=== PATIENT | female | born 1995 | race Caucasian/White ===

== ENCOUNTER 2019-01-17 17:20 | Observation (INO) | payer OTHER, SELFPAY ==
[2019-01-17] VITALS (7 sets, daily range): BP systolic 117–124; BP diastolic 68–101; PULSE 107–120; RESP 15–22; TEMP 36.7–37.9; O2SAT 95–99; BMI 24.7; BMI 24.3
--- NOTE | 2019-01-17 17:28 | ED.SEIZURE ---
HPI - Seizure General Chief Complaint: Toxicology Problem Stated Complaint: Seizure Time Seen by Provider: 01/17/19 17:26 Source: patient and EMS Mode of arrival: EMS Limitations: no limitations History of Present Illness HPI Narrative: 23-year-old female former smoker with heavy alcohol history presents by EMS with a chief complaint of a generalized tonic-clonic seizure that happened just prior to arrival while the patient was out hiking. She had been feeling relatively fine and well leading up to this and has no significant seizure history. She denies any trauma leading up to this and no fever, chills nor headache or neck pain. She does have an extensive alcohol history and stopped drinking about 36 hours ago. She has had seizures as a consequence of alcohol withdrawal 1 time before. She currently complains of a headache, agitation some nausea, generalized abdominal discomfort, and has a mild resting tremor. MD complaint: seizure Onset (ago): minute(s) Description of Episode: loss of consciousness and tonic-clonic movement -: second(s) Witnessed: yes - by bystander Trauma: No Seizure History: none Place: street/outdoors Possible Precipitating Event: alcohol withdrawal Related Data Allergies Allergy/AdvReac Type Severity Reaction Status Date / Time No Known Drug Allergies Allergy Verified 01/17/19 17:30 Review of Systems Constitutional Reports chills, Reports fatigue, Denies fever(s), Reports headache(s), Denies lethargy, Reports poor appetite and Reports weakness Eyes Denies change in vision, Denies eye discharge, Denies irritation and Denies loss of vision ENT Ears, Nose, Mouth, and Throat: Denies change in voice, Reports headache(s), Denies neck pain and Denies sore throat Cardiovascular Denies chest pain, Denies irregular heart rhythm, Denies lightheadedness, Denies palpitations, Denies dyspnea, Denies dyspnea on exertion and Denies orthopnea Respiratory Denies cough, Denies dyspnea, Denies dyspnea on exertion and Denies wheezing Gastrointestinal Gastrointestinal: Reports abdominal pain, Denies change in bowel habits, Denies diarrhea, Reports nausea and Reports vomiting Genitourinary Denies hematuria, Denies flank pain, Denies urinary incontinence and Denies urinary urgency Musculoskeletal Denies neck pain Integumentary/Breasts Denies pruritus, Denies erythema, Denies rash and Denies wounds Neurologic Denies confusion, Reports headache(s), Denies loss of vision and Reports weakness Psychiatric Denies anxiety, Denies confusion, Denies depression, Denies homicidal ideation and Reports suicidal ideation Endocrine Reports fatigue and Denies palpitations Hematologic/Lymphatic Denies easy bruising Allergic/Immunologic Denies wheezing [facility] Medical History (Updated 01/17/19 @ 18:47 by Aki Rudd DO) Alcohol abuse (Acute) Social History Smoking Status: Unknown if ever smoked Social History Smoking Status: Unknown if ever smoked Exam Narrative Exam Narrative: GENERAL: 23-year-old female appears stated age, in moderate distress, obviously agitated with mild resting tremor HEAD: Atraumatic. Normocephalic. No temporal or scalp tenderness. EYES: Pupils equal round and reactive. Extraocular motions intact. No scleral icterus. No injection or drainage. ENT: Nose without bleeding, purulent drainage or septal hematoma. Throat without erythema, tonsillar hypertrophy or exudate. Uvula midline. Airway patent. NECK: Trachea midline. No JVD or lymphadenopathy. Supple, nontender, no meningeal signs. CARDIOVASCULAR: Regular rate and rhythm without murmurs, gallops, or rubs. RESPIRATORY: Clear to auscultation. Breath sounds equal bilaterally. No wheezes, rales, or rhonchi. GASTROINTESTINAL: Abdomen soft, non-tender, nondistended. No hepato-splenomegaly, or palpable masses. No guarding. EXTREMITIES: No clubbing, cyanosis, or edema. No joint tenderness, effusion, or edema noted. BACK: Nontender without deformity or crepitance. No flank tenderness. NEURO: AOx3. SKIN: No rash or erythema. Initial Vital Signs Initial Vital Signs: Vital Signs Temperature 99.3 F 01/17/19 17:30 Pulse Rate 119 H 01/17/19 17:30 Respiratory Rate 15 01/17/19 17:30 Blood Pressure 121/101 H 01/17/19 17:30 Pulse Oximetry 96 01/17/19 17:30 Scores [id number] Citation: ANGELLA-Romain for Alcohol Withdrawal from [employer] on 01/17/2019 All calculations should be rechecked by clinician prior to use RESULT SUMMARY: 17 points Patients with scores ?9 may require medication for withdrawal. INPUTS: Nausea/vomiting ?> 3 = (More severe symptoms) Tremor ?> 4 = Moderate, with patient's arms extended Paroxysmal sweats ?> 2 = (More severe symptoms) Anxiety ?> 3 = (More severe symptoms) Agitation ?> 2 = (More severe symptoms) Tactile disturbances ?> 0 = None Auditory disturbances ?> 0 = Not present Visual disturbances ?> 0 = Not present Headache/fullness in head ?> 3 = Moderate Orientation/clouding of sensorium ?> 0 = Oriented, can do serial additions Course Decision to Admit time: 18:05 Orders Ordered: ED Orders 01/17/19 17:15 Basic Metabolic Panel Stat Complete Blood Count AUTO DIFF Stat Ethanol (ETOH) Stat Magnesium Stat Prolactin Stat 01/17/19 17:26 Urine Drug Screen, Rapid Stat Magnesium Sulfate 2 gm/ Folic Acid 1 mg/ Thiamine HCl 100 mg / Multivitamins 10 ml/ Sodium Chloride 1,015.2 mls @ 125 mls/hr IV NOW ONE Stop: 01/18/19 02:00 Discontinued Medications Sodium Chloride (Normal Saline 0.9%) 1,000 mls @ 1,000 mls/hr IV BOLUS ONE Stop: 01/17/19 18:25 Last Admin: 01/17/19 17:39 Dose: 1,000 mls/hr Thiamine HCl 100 mg/ Dextrose 51 mls @ 204 mls/hr IV NOW ONE Stop: 01/17/19 17:28 Last Admin: 01/17/19 17:56 Dose: 204 mls/hr Lorazepam (Ativan) 2 mg IV NOW ONE Stop: 01/17/19 17:27 Last Admin: 01/17/19 17:40 Dose: 2 mg Reevaluation(s) Reevaluation #1: Patient feeling much better after Ativan, shakes have improved, less tachycardia Consultations Consultation #1: call to Dr. Rollins, she is happy to accept patient on her service Vital Signs - 8 hr 01/17/19 17:30 01/17/19 18:21 01/17/19 18:30 Temperature 99.3 F Pulse Rate 119 H 120 H 111 H Respiratory Rate 15 22 15 Blood Pressure 121/101 H Blood Pressure [Right Arm] 118/79 121/75 Pulse Oximetry 96 99 99 MDM - Seizure Lab Data Result diagrams: 01/17/19 17:15 01/17/19 17:15 Lab Results 01/17/19 01/17/19 01/17/19 Range/Units 17:15 17:15 17:15 WBC 14.1 H (4.5-11.0) X10^3/uL RBC 4.69 (4.0-5.2) X10^6/uL Hgb 14.2 (12.0-16.0) g/dL Hct 42.5 (36-46) % MCV 90.8 (80-100) fL MCH 30.4 (26-34) PG MCHC 33.5 (30-36) % RDW 13.8 (11.6-14.8) % Plt Count 450 H (150-400) X10^3/uL Neut % (Auto) 72.6 (50-75) % Lymph % (Auto) 20.3 L (25-40) % [place] % (Auto) 6.3 (3-14) % Eos % (Auto) 0.1 L (2-4) % Baso % (Auto) 0.7 (0-2) % Neut # (Auto) 61583 H (2097-4543) /uL Lymph # (Auto) 2900 (8976-2995) /uL [place] # (Auto) 900 (0-900) /uL Eos # (Auto) 0 (0-450) /uL Baso # (Auto) 100 (0-100) /uL Sodium 138 (137-145) mmol/L Potassium 3.6 (3.4-5.1) mmol/L Chloride 96 L (98-107) mmol/L Carbon Dioxide 17 L (22-32) mmol/L BUN 12 (7-17) mg/dL Creatinine 1.10 H (0.52-1.04) mg/dL Estimated GFR > 60.0 (>60) mL/min BUN/Creatinine Ratio 10.9 (6-22) Glucose 111 H (70-100) mg/dL Calcium 9.9 (8.4-10.2) mg/dL Magnesium 2.1 (1.6-2.3) mg/dL Prolactin 95.8 H (3.0-18.6) ng/mL Ethyl Alcohol < 10 mg/dL Discharge Plan Departure Patient Disposition: Admitted As Inpatient Clinical Impression: Alcohol withdrawal seizure Qualifiers: Complication of substance-induced condition: with unspecified complication Qualified Code(s): F10.239 - Alcohol dependence with withdrawal, unspecified Admit Date/Time: 01/17/19 18:42 Admit Provider: Zully Rollins
--- NOTE | 2019-01-17 17:31 | ED_ITS ---
HPI - Seizure General Chief Complaint: Toxicology Problem Stated Complaint: Seizure Time Seen by Provider: 01/17/19 17:26 Source: patient and EMS Mode of arrival: EMS Limitations: no limitations History of Present Illness HPI Narrative: 23-year-old female former smoker with heavy alcohol history presents by EMS with a chief complaint of a generalized tonic-clonic seizure that happened just prior to arrival while the patient was out hiking. She had been feeling relatively fine and well leading up to this and has no significant seizure history. She denies any trauma leading up to this and no fever, chills nor headache or neck pain. She does have an extensive alcohol history and stopped drinking about 36 hours ago. She has had seizures as a consequence of alcohol withdrawal 1 time before. She currently complains of a headache, agitation some nausea, generalized abdominal discomfort, and has a mild resting tremor. MD complaint: seizure Onset (ago): minute(s) Description of Episode: loss of consciousness and tonic-clonic movement -: second(s) Witnessed: yes - by bystander Trauma: No Seizure History: none Place: street/outdoors Possible Precipitating Event: alcohol withdrawal Related Data Allergies Allergy/AdvReac Type Severity Reaction Status Date / Time No Known Drug Allergies Allergy Verified 01/17/19 17:30 Review of Systems Constitutional Reports chills, Reports fatigue, Denies fever(s), Reports headache(s), Denies lethargy, Reports poor appetite and Reports weakness Eyes Denies change in vision, Denies eye discharge, Denies irritation and Denies loss of vision ENT Ears, Nose, Mouth, and Throat: Denies change in voice, Reports headache(s), Denies neck pain and Denies sore throat Cardiovascular Denies chest pain, Denies irregular heart rhythm, Denies lightheadedness, Denies palpitations, Denies dyspnea, Denies dyspnea on exertion and Denies orthopnea Respiratory Denies cough, Denies dyspnea, Denies dyspnea on exertion and Denies wheezing Gastrointestinal Gastrointestinal: Reports abdominal pain, Denies change in bowel habits, Denies diarrhea, Reports nausea and Reports vomiting Genitourinary Denies hematuria, Denies flank pain, Denies urinary incontinence and Denies urinary urgency Musculoskeletal Denies neck pain Integumentary/Breasts Denies pruritus, Denies erythema, Denies rash and Denies wounds Neurologic Denies confusion, Reports headache(s), Denies loss of vision and Reports weakness Psychiatric Denies anxiety, Denies confusion, Denies depression, Denies homicidal ideation a nd Reports suicidal ideation Endocrine Reports fatigue and Denies palpitations Hematologic/Lymphatic Denies easy bruising Allergic/Immunologic Denies wheezing [facility] Medical History (Updated 01/17/19 @ 18:47 by Aki Rudd DO) Alcohol abuse (Acute) Social History Smoking Status: Unknown if ever smoked Social History Smoking Status: Unknown if ever smoked Exam Narrative Exam Narrative: GENERAL: 23-year-old female appears stated age, in moderate distress, obviously agitated with mild resting tremor HEAD: Atraumatic. Normocephalic. No temporal or scalp tenderness. EYES: Pupils equal round and reactive. Extraocular motions intact. No scleral icterus. No injection or drainage. ENT: Nose without bleeding, purulent drainage or septal hematoma. Throat without erythema, tonsillar hypertrophy or exudate. Uvula midline. Airway patent. NECK: Trachea midline. No JVD or lymphadenopathy. Supple, nontender, no meningeal signs. CARDIOVASCULAR: Regular rate and rhythm without murmurs, gallops, or rubs. RESPIRATORY: Clear to auscultation. Breath sounds equal bilaterally. No wheezes, rales, or rhonchi. GASTROINTESTINAL: Abdomen soft, non-tender, nondistended. No hepato- splenomegaly, or palpable masses. No guarding. EXTREMITIES: No clubbing, cyanosis, or edema. No joint tenderness, effusion, or edema noted. BACK: Nontender without deformity or crepitance. No flank tenderness. NEURO: AOx3. SKIN: No rash or erythema. Initial Vital Signs Initial Vital Signs: Vital Signs Temperature 99.3 F 01/17/19 17:30 Pulse Rate 119 H 01/17/19 17:30 Respiratory Rate 15 01/17/19 17:30 Blood Pressure 121/101 H 01/17/19 17:30 Pulse Oximetry 96 01/17/19 17:30 Scores ABCD2 Citation: Gibran for Alcohol Withdrawal from [employer] on 01/17/2019 All calculations should be rechecked by clinician prior to use RESULT SUMMARY: 17 points Patients with scores ?9 may require medication for withdrawal. INPUTS: Nausea/vomiting ?> 3 = (More severe symptoms) Tremor ?> 4 = Moderate, with patient's arms extended Paroxysmal sweats ?> 2 = (More severe symptoms) Anxiety ?> 3 = (More severe symptoms) Agitation ?> 2 = (More severe symptoms) Tactile disturbances ?> 0 = None Auditory disturbances ?> 0 = Not present Visual disturbances ?> 0 = Not present Headache/fullness in head ?> 3 = Moderate Orientation/clouding of sensorium ?> 0 = Oriented, can do serial additions Course Decision to Admit time: 18:05 Orders Ordered: ED Orders 01/17/19 17:15 Basic Metabolic Panel Stat Complete Blood Count AUTO DIFF Stat Ethanol (ETOH) Stat Magnesium Stat Prolactin Stat 01/17/19 17:26 Urine Drug Screen, Rapid Stat Magnesium Sulfate 2 gm/ Folic Acid 1 mg/ Thiamine HCl 100 mg / Multivitamins 10 ml/ Sodium Chloride 1,015.2 mls @ 125 mls/hr IV NOW ONE Stop: 01/18/19 02:00 Discontinued Medications Sodium Chloride (Normal Saline 0.9%) 1,000 mls @ 1,000 mls/hr IV BOLUS ONE Stop: 01/17/19 18:25 Last Admin: 01/17/19 17:39 Dose: 1,000 mls/hr Thiamine HCl 100 mg/ Dextrose 51 mls @ 204 mls/hr IV NOW ONE Stop: 01/17/19 17:28 Last Admin: 01/17/19 17:56 Dose: 204 mls/hr Lorazepam (Ativan) 2 mg IV NOW ONE Stop: 01/17/19 17:27 Last Admin: 01/17/19 17:40 Dose: 2 mg Reevaluation(s) Reevaluation #1: Patient feeling much better after Ativan, shakes have improved, less tachycardia Consultations Consultation #1: call to Dr. Rollins, she is happy to accept patient on her service Vital Signs - 8 hr 01/17/19 17:30 01/17/19 18:21 01/17/19 18:30 Temperature 99.3 F Pulse Rate 119 H 120 H 111 H Respiratory Rate 15 22 15 Blood Pressure 121/101 H Blood Pressure [Right Arm] 118/79 121/75 Pulse Oximetry 96 99 99 MDM - Seizure Lab Data Result diagrams: 01/17/19 17:15 01/17/19 17:15 Lab Results 01/17/19 01/17/19 01/17/19 Range/Units 17:15 17:15 17:15 WBC 14.1 H (4.5-11.0) X10^3/uL RBC 4.69 (4.0-5.2) X10^6/uL Hgb 14.2 (12.0-16.0) g/dL Hct 42.5 (36-46) % MCV 90.8 (80-100) fL MCH 30.4 (26-34) PG MCHC 33.5 (30-36) % RDW 13.8 (11.6-14.8) % Plt Count 450 H (150-400) X10^3/uL Neut % (Auto) 72.6 (50-75) % Lymph % (Auto) 20.3 L (25-40) % [place] % (Auto) 6.3 (3-14) % Eos % (Auto) 0.1 L (2-4) % Baso % (Auto) 0.7 (0-2) % Neut # (Auto) 64618 H (0475-9515) /uL Lymph # (Auto) 2900 (5619-5822) /uL [place] # (Auto) 900 (0-900) /uL Eos # (Auto) 0 (0-450) /uL Baso # (Auto) 100 (0-100) /uL Sodium 138 (137-145) mmol/L Potassium 3.6 (3.4-5.1) mmol/L Chloride 96 L (98-107) mmol/L Carbon Dioxide 17 L (22-32) mmol/L BUN 12 (7-17) mg/dL Creatinine 1.10 H (0.52-1.04) mg/dL Estimated GFR > 60.0 (>60) mL/min BUN/Creatinine Ratio 10.9 (6-22) Glucose 111 H (70-100) mg/dL Calcium 9.9 (8.4-10.2) mg/dL Magnesium 2.1 (1.6-2.3) mg/dL Prolactin 95.8 H (3.0-18.6) ng/mL Ethyl Alcohol < 10 mg/dL Discharge Plan Departure Patient Disposition: Admitted As Inpatient Clinical Impression: Alcohol withdrawal seizure Qualifiers: Complication of substance-induced condition: with unspecified complication Qualified Code(s): F10.239 - Alcohol dependence with withdrawal, unspecified Admit Date/Time: 01/17/19 18:42 Admit Provider: Zully Rollins
[2019-01-17 17:33] LABS: Add Manual Diff / Slide Review NO; Basophils Absolute Auto 100 /uL (0-100); Basophils Percent Auto 0.7 % (0-2); Eosinophils Absolute Auto 0 /uL (0-450); Eosinophils Percent Auto 0.1 % (2-4); Hematocrit 42.5 % (36-46); Hemoglobin 14.2 g/dL (12.0-16.0); Lymphocytes Absolute Auto 2900 /uL (1100-4500); Lymphocytes Percent Auto 20.3 % (25-40); Mean Corpuscular HGB Conc 33.5 % (30-36); Mean Corpuscular Hemoglobin 30.4 PG (26-34); Mean Corpuscular Volume 90.8 fL (80-100); Monocytes Absolute Auto 900 /uL (0-900); Monocytes Percent Auto 6.3 % (3-14); Neutrophils Absolute Auto 10200 /uL (1500-7000); Neutrophils Percent Auto 72.6 % (50-75); Platelet Count 450 X10^3/uL (150-400); Red Blood Cell Count 4.69 X10^6/uL (4.0-5.2); Red Cell Distribution Width 13.8 % (11.6-14.8); White Blood Cell Count 14.1 X10^3/uL (4.5-11.0)
[2019-01-17] MEDS: SODIUM CHLORIDE 0.9% 1,000 ML 1000 ML IV (17:39)
[2019-01-17] MEDS: LORazepam 2 MG/ML INJ IV (17:40)
[2019-01-17 17:44] LABS: BUN Creatinine Ratio 10.9 (6-22); Blood Urea Nitrogen 12 mg/dL (7-17); Calcium 9.9 mg/dL (8.4-10.2); Carbon Dioxide 17 mmol/L (22-32); Chloride 96 mmol/L (98-107); Estimated Glomerular Filt Rate > 60.0 mL/min (>60); Glucose 111 mg/dL (70-100); HEMOLYSIS < 15 (0-50); Magnesium 2.1 mg/dL (1.6-2.3); Potassium 3.6 mmol/L (3.4-5.1); Sodium 138 mmol/L (137-145)
[2019-01-17] MEDS: THIAMINE 100 MG in DEXTROSE 5 % IN WATER 50 ML 204 ML IV (17:56)
[2019-01-17 18:01] LABS: Prolactin 95.8 ng/mL (3.0-18.6)
[2019-01-17 18:02] LABS: Ethanol (ETOH) < 10 mg/dL
[2019-01-17] MEDS: MAGNESIUM SULFATE 2 GM, FOLIC ACID 1 MG, THIAMINE 100 MG, MULTIVITAMIN 10 ML in SODIUM ... IV (18:51)
--- NOTE | 2019-01-17 21:33 | PM.HP.1 ---
History of Present Illness Date Patient Seen: 01/17/19 Time Patient Seen: 19:00 Chief complaint: Presumed alcoholic withdrawal seizure Narrative: Eloina Calderon is a 23-year-old female with longstanding history of heavy alcohol use presents today after having been witnessed to have had a seizure. She states that she had quit drinking though has not been ?sober for a while. She stated that she started shaking, her leg froze up and then she had numbing in her right hand and in her left foot followed by being able to complete sentences. She states that she laid down and her back rolled up and she fell on the ground. She states that her last drink was Wednesday night which would have been 1 night ago. Patient History Medical History (Updated 01/18/19 @ 00:27 by JOSE Pratt) Alcohol abuse (Acute) Major depression, recurrent, chronic (Acute) Family History (Updated 01/18/19 @ 00:29 by JOSE Pratt) Mother Abuse, drug or alcohol Father CVA (cerebral vascular accident) Abuse, drug or alcohol Social History household members: none Smoking Status: Current some day smoker Family & Social History Social History: household members none Prior Living Arrangements Apartment/Condo Safety & Behavioral: Feels Safe in Current Yes Environment Been Physically Hurt or No Threatened By a Person Suicidal Ideation Description None Suicide Plan Description No Plan Tobacco & Substance use: Tobacco type cigarettes Smoking Status Current some day smoker alcohol intake frequency 3 or more drinks per day Substance Use Type does not use Meds Home Medications Medication Instructions Recorded Confirmed Type melatonin PRN 01/17/19 History sertraline 150 mg PO DAILY 01/17/19 01/17/19 History Allergies Allergy/AdvReac Type Severity Reaction Status Date / Time diphenhydramine Allergy Verified 01/17/19 21:35 [From Benadryl] Review of Systems Review of Systems She denies fever states that she has been dizzy she denies nausea she states that she is tired and feels confused and that she is currently having problems standing balance when walking. All other systems were reviewed and are negative. Exam Vital Signs (past 8 hours): - 01/17/19 17:30 01/17/19 18:21 01/17/19 18:30 Temperature 99.3 F Pulse Rate 119 H 120 H 111 H Respiratory Rate 15 22 15 Blood Pressure 121/101 H Blood Pressure [Right Arm] 118/79 121/75 Pulse Oximetry 96 99 99 01/17/19 19:30 01/17/19 20:00 Temperature 100.2 F H Pulse Rate 109 H 107 H Respiratory Rate 17 22 Blood Pressure 124/68 Blood Pressure [Right Arm] 124/88 Pulse Oximetry 97 96 Oxygen Delivery Method Room Air Narrative Exam Narrative: Gen: Alert, oriented 23 y.o. well-developed female, mildly anxious HEENT: normocephalic, atraumatic, conjunctiva clear, sclera non-icteric, oral mucosa pink and moist Neck: supple, full ROM Resp: Lungs CTA, non-labored breathing CV: RRR, no murmur or rubs Abd: soft, non-tender, normoactive BTs Skin: no lesions, rashes or jaundice, extensive tatoos on both arms, dry and intact Neuro: Alert and oriented X 4 w/no focal deficits Extremities: moves all 4 extremities, is ambulatory Psyche: Anxious. Objective Labs Result Diagrams: 01/17/19 17:15 01/17/19 17:15 Labs: Laboratory Results - last 24 hr 01/17/19 01/17/19 01/17/19 17:15 17:15 17:15 WBC 14.1 H RBC 4.69 Hgb 14.2 Hct 42.5 MCV 90.8 MCH 30.4 MCHC 33.5 RDW 13.8 Plt Count 450 H Neut % (Auto) 72.6 Lymph % (Auto) 20.3 L [place] % (Auto) 6.3 Eos % (Auto) 0.1 L Baso % (Auto) 0.7 Neut # (Auto) 90929 H Lymph # (Auto) 2900 [place] # (Auto) 900 Eos # (Auto) 0 Baso # (Auto) 100 Sodium 138 Potassium 3.6 Chloride 96 L Carbon Dioxide 17 L BUN 12 Creatinine 1.10 H Estimated GFR > 60.0 BUN/Creatinine Ratio 10.9 Glucose 111 H Calcium 9.9 Magnesium 2.1 Prolactin 95.8 H Ethyl Alcohol < 10 Assessment & Plan Assessment & Plan narrative: Eloina Calderon is admitted to the ICU for alcoholic withdrawals and seizures. 1. Seizures likely secondary to alcohol withdrawal She will be under a CIWA protocol Ativan 1 mg p.o. q.4 hours as needed for agitation or withdrawal, IV Zofran for nausea and/or vomiting Seizure precautions She will complete the IV banana bag tonight an than be on 0.45 normal saline at 100 mL/hour x1 L Oral folic acid, thiamine and multivitamin supplementation will be started tomorrow morning Social work consult for possible inpatient versus outpatient rehab 2. Major depression She will be continued on her home dose of sertraline 150 mg p.o. daily Patient is admitted in the inpatient intensive care unit as her stay is anticipated to exceed 2 midnights. FEN: IV half normal saline at 100 mL/hour, regular diet, chemistries in the morning VTE Prophylaxis: Bilateral Conner hose, the patient is relatively ambulatory Disposition: Unknown at this time Code status: Full code Admission time: 65 minutes Meds reconciled: Yes based on current med list Scores GCS [place] coma scale eye opening: Spontaneous [place] coma scale verbal response: Orientated [place] coma scale motor response: Obey commands [place] coma scale total score: 15 Quality VTE Deep Vein Thrombosis/Pulmonary Embolism Present on Admission: No
[2019-01-17 21:56] LABS: WBC Urine None Seen (0-5/HPF)
[2019-01-17 22:02] LABS: Pregnancy Test Urine Negative (Negative)
[2019-01-17 22:07] LABS: Urine Amphetamines Negative (Negative); Urine Barbiturates Negative (Negative); Urine Benzodiazepines Negative (Negative); Urine Cocaine Negative (Negative); Urine MDMA Negative (Negative); Urine Methadone Negative (Negative); Urine Methamphetamines Negative (Negative); Urine Morphine/Opi cutoff 2000 Negative (Negative); Urine Oxycodone Negative (Negative); Urine Phencyclidine Negative (Negative); Urine Tetrahydrocannabinol Negative (Negative); Urine Tricyclic Antidepressant Negative (Negative)
[2019-01-17 22:08] LABS: Appearance Urine UA CLEAR; Bilirubin Urine UA NEGATIVE (NEGATIVE); Color Urine UA YELLOW; Glucose Urine UA NEGATIVE (Negative); Ketones Urine UA NEGATIVE (NEGATIVE); Leukocyte Esterase Urine UA NEGATIVE (NEGATIVE); Nitrite Urine UA NEGATIVE (Negative); Occult Blood Urine UA TRACE-LYSED (Negative); Protein Urine UA NEGATIVE (Negative); Urobilinogen Urine UA 0.2 E.U./dL (0.2)
[2019-01-17 22:20] LABS: Bacteria Urine Few (2-10); RBC Urine 0-1/HPF (0-5/HPF); Squamous Epithelial Cell Urine None Seen (0-5/HPF)
[2019-01-17 22:21] LABS: Culture Indicated Urine Cult Not Indicated
--- NOTE | 2019-01-17 23:45 | PC.NURSE ---
Admission Note: Pt admitted to ICU from ER for ETOH withdrawal. Pt with CIWAA 0 after ativan given in ER. Pt is pleasant and conversant, cooperative with care. Arrives on RA, SPO2 mid 90s. Pt with BP WNL, tachycardic to 110s. Pt is unsteady on her feet, discussed that she is a fall risk and will need to have assistance for ambulation. Pt indicates understanding. Bed alarm on and functioning. Call light in place.
[2019-01-18] VITALS: BP 116/69; PULSE 93; RESP 21; TEMP 37; O2SAT 97
--- NOTE | 2019-01-18 00:20 | P.HP_ITS ---
History of Present Illness Date Patient Seen: 01/17/19 Time Patient Seen: 19:00 Chief complaint: Presumed alcoholic withdrawal seizure Narrative: Eloina Calderon is a 23-year-old female with longstanding history of heavy alcohol use presents today after having been witnessed to have had a seizure. She states that she had quit drinking though has not been ?sober for a while. She stated that she started shaking, her leg froze up and then she had numbing in her right hand and in her left foot followed by being able to complete sentences. She states that she laid down and her back rolled up and she fell on the ground. She states that her last drink was Wednesday night which would have been 1 night ago. Patient History Medical History (Updated 01/18/19 @ 00:27 by JOSE Pratt) Alcohol abuse (Acute) Major depression, recurrent, chronic (Acute) Family History (Updated 01/18/19 @ 00:29 by JOSE Pratt) Mother Abuse, drug or alcohol Father CVA (cerebral vascular accident) Abuse, drug or alcohol Social History household members: none Smoking Status: Current some day smoker Family & Social History Social History: household members none Prior Living Arrangements Apartment/Condo Safety & Behavioral: Feels Safe in Current Yes Environment Been Physically Hurt or No Threatened By a Person Suicidal Ideation Description None Suicide Plan Description No Plan Tobacco & Substance use: Tobacco type cigarettes Smoking Status Current some day smoker alcohol intake frequency 3 or more drinks per day Substance Use Type does not use Meds Home Medications Medication Instructions Recorded Confirmed Type melatonin PRN 01/17/19 History sertraline 150 mg PO DAILY 01/17/19 01/17/19 History Allergies Allergy/AdvReac Type Severity Reaction Status Date / Time diphenhydramine Allergy Verified 01/17/19 21:35 [From Benadryl] Review of Systems Review of Systems She denies fever states that she has been dizzy she denies nausea she states that she is tired and feels confused and that she is currently having problems standing balance when walking. All other systems were reviewed and are negative. Exam Vital Signs (past 8 hours): - 01/17/19 17:30 01/17/19 18:21 01/17/19 18:30 Temperature 99.3 F Pulse Rate 119 H 120 H 111 H Respiratory Rate 15 22 15 Blood Pressure 121/101 H Blood Pressure [Right Arm] 118/79 121/75 Pulse Oximetry 96 99 99 01/17/19 19:30 01/17/19 20:00 Temperature 100.2 F H Pulse Rate 109 H 107 H Respiratory Rate 17 22 Blood Pressure 124/68 Blood Pressure [Right Arm] 124/88 Pulse Oximetry 97 96 Oxygen Delivery Method Room Air Narrative Exam Narrative: Gen: Alert, oriented 23 y.o. well-developed female, mildly anxious HEENT: normocephalic, atraumatic, conjunctiva clear, sclera non-icteric, oral mucosa pink and moist Neck: supple, full ROM Resp: Lungs CTA, non-labored breathing CV: RRR, no murmur or rubs Abd: soft, non-tender, normoactive BTs Skin: no lesions, rashes or jaundice, extensive tatoos on both arms, dry and intact Neuro: Alert and oriented X 4 w/no focal deficits Extremities: moves all 4 extremities, is ambulatory Psyche: Anxious. Objective Labs Result Diagrams: 01/17/19 17:15 01/17/19 17:15 Labs: Laboratory Results - last 24 hr 01/17/19 01/17/19 01/17/19 17:15 17:15 17:15 WBC 14.1 H RBC 4.69 Hgb 14.2 Hct 42.5 MCV 90.8 MCH 30.4 MCHC 33.5 RDW 13.8 Plt Count 450 H Neut % (Auto) 72.6 Lymph % (Auto) 20.3 L [place] % (Auto) 6.3 Eos % (Auto) 0.1 L Baso % (Auto) 0.7 Neut # (Auto) 70682 H Lymph # (Auto) 2900 [place] # (Auto) 900 Eos # (Auto) 0 Baso # (Auto) 100 Sodium 138 Potassium 3.6 Chloride 96 L Carbon Dioxide 17 L BUN 12 Creatinine 1.10 H Estimated GFR > 60.0 BUN/Creatinine Ratio 10.9 Glucose 111 H Calcium 9.9 Magnesium 2.1 Prolactin 95.8 H Ethyl Alcohol < 10 Assessment & Plan Assessment & Plan narrative: Eloina Calderon is admitted to the ICU for alcoholic withdrawals and seizures. 1. Seizures likely secondary to alcohol withdrawal * She will be under a CICO protocol * Ativan 1 mg p.o. q.4 hours as needed for agitation or withdrawal, IV Zofran for nausea and/or vomiting * Seizure precautions * She will complete the IV banana bag tonight an than be on 0.45 normal saline at 100 mL/hour x1 L * Oral folic acid, thiamine and multivitamin supplementation will be started tomorrow morning * Social work consult for possible inpatient versus outpatient rehab 2. Major depression * She will be continued on her home dose of sertraline 150 mg p.o. daily Patient is admitted in the inpatient intensive care unit as her stay is anticipated to exceed 2 midnights. FEN: IV half normal saline at 100 mL/hour, regular diet, chemistries in the morning VTE Prophylaxis: Bilateral Conner hose, the patient is relatively ambulatory Disposition: Unknown at this time Code status: Full code Admission time: 65 minutes Meds reconciled: Yes based on current med list Scores GCS Zack coma scale eye opening: Spontaneous Zack coma scale verbal response: Orientated Zack coma scale motor response: Obey commands Zack coma scale total score: 15 Quality VTE Deep Vein Thrombosis/Pulmonary Embolism Present on Admission: No
[2019-01-18] MEDS: SODIUM CHLORIDE 0.45% 1,000 ML 100 ML IV (03:29)
[2019-01-18 03:50] VITALS: BP 106/59; PULSE 88; RESP 23; TEMP 37; O2SAT 98
[2019-01-18 05:12] LABS: Alanine Aminotransferase 11 IU/L (9-52); Albumin 3.5 g/dL (3.5-5.0); Albumin Globulin Ratio 1.2 (1.0-2.8); Alkaline Phosphatase 61 U/L (38-126); Aspartate Aminotransferase 46 IU/L (14-36); BUN Creatinine Ratio 8.8 (6-22); Bilirubin Total 0.8 mg/dL (0.2-1.3); Blood Urea Nitrogen 7 mg/dL (7-17); Calcium 8.4 mg/dL (8.4-10.2); Carbon Dioxide 27 mmol/L (22-32); Chloride 104 mmol/L (98-107); Estimated Glomerular Filt Rate > 60.0 mL/min (>60); Globulin 2.9 g/dL (1.7-4.1); Glucose 92 mg/dL (70-100); HEMOLYSIS < 15 (0-50); Potassium 3.9 mmol/L (3.4-5.1); Sodium 136 mmol/L (137-145); Total Protein 6.4 g/dL (6.3-8.2)
[2019-01-18 05:13] LABS: Add Manual Diff / Slide Review NO; Basophils Absolute Auto 100 /uL (0-100); Basophils Percent Auto 1.2 % (0-2); Eosinophils Absolute Auto 200 /uL (0-450); Eosinophils Percent Auto 2.8 % (2-4); Hematocrit 36.8 % (36-46); Hemoglobin 12.5 g/dL (12.0-16.0); Lymphocytes Absolute Auto 1900 /uL (1100-4500); Lymphocytes Percent Auto 32.6 % (25-40); Mean Corpuscular Hemoglobin 30.9 PG (26-34); Mean Corpuscular Volume 90.8 fL (80-100); Monocytes Absolute Auto 500 /uL (0-900); Monocytes Percent Auto 8.9 % (3-14); Neutrophils Absolute Auto 3200 /uL (1500-7000); Neutrophils Percent Auto 54.5 % (50-75); Platelet Count 303 X10^3/uL (150-400); Red Blood Cell Count 4.05 X10^6/uL (4.0-5.2); Red Cell Distribution Width 13.8 % (11.6-14.8); White Blood Cell Count 5.8 X10^3/uL (4.5-11.0)
--- NOTE | 2019-01-18 05:44 | PC.NURSE ---
NOC Shift: Pt admitted last evening w/ETOH withdrawal related seizure, pt stated last drink Wednesday night. Pt pleasant, cooperative throughout shift. CIWA score 3-4. Has periods of forgetfulness especially when waking from sleep. Re-orients quickly when awake. Denies pain, discomfort. SR/ST on tele, VSS. Unsteady w/walking to bathroom needs 1 PA for safety. Bed alarm on, seizure protocol implemented. Remains ICU status.
[2019-01-18 07:00] VITALS: O2SAT 99
[2019-01-18 07:08] VITALS: BP 132/70; PULSE 98; RESP 17; TEMP 37.6; O2SAT 98
[2019-01-18] MEDS: SERTRALINE 50 MG TABLET 150 MG PO (09:34)
[2019-01-18] MEDS: THIAMINE 100 MG TABLET PO (09:35)
[2019-01-18] MEDS: FOLIC ACID 1 MG TABLET PO (09:36)
[2019-01-18] MEDS: MULTIVITAMIN 1 TABLET 1 TAB PO (09:36)
--- NOTE | 2019-01-18 10:22 | P.DS_ITS ---
History of Present Illness Date Patient Seen: 01/18/19 Chief complaint: Presumed alcoholic withdrawal seizure Narrative: harry Calderon is a 23-year-old female with longstanding history of heavy alcohol use presents today after having been witnessed to have had a seizure. She states that she had quit drinking though has not been ?sober for a while. She stated that she started shaking, her leg froze up and then she had numbing in her right hand and in her left foot followed by being able to complete sentences. She states that she laid down and her back rolled up and she fell on the ground. She states that her last drink was Wednesday night which would have been 1 night ago. Discharge Providers Date of admission: 01/17/19 18:42 Discharge Date: 01/18/19 Consults: 01/17/19 19:39 Consult to Inventory Accountant Routine Comment: Outpt vs inpt ETOH rehab 01/17/19 21:25 Consult to Dietitian, Adult Routine Comment: Reason For Exam: alcoholism Discharge provider: Zully Rollins MD Summary Discharge Diagnosis: 1. Delerium Tremens 2. Alcohol Withdrawal Seizure 3. Alcohol Dependence 4. Depression Hospital Course: Patient was admitted to the hospital following a witnessed seizure following cessation of alcohol. The patient had no further seizures, no hallucinations, mild tremors, and did not require additional ativan since admission. This morning she has no complaints, specifically no headache, nausea, tremors, or hallucinations. She is planning to reconnect with her sponsor. She does not wish to go back to treatment. She recognizes that she cannot and should not drink alcohol. She will follow up with a PCP [facility]. 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 She will be evaluated by social work and if appropriate plans made to discharge home today. Status at Discharge Cognitive/behavioral status at discharge: oriented Functional status at discharge: independent ambulation Overall status at discharge: patient is back to baseline Time Spent with Patient Less than 30 minutes Exam Vital Signs (past 8 hours): - 01/18/19 03:50 01/18/19 07:08 Temperature 98.6 F 99.6 F Pulse Rate 88 98 H Respiratory Rate 23 17 Blood Pressure 106/59 L 132/70 Pulse Oximetry 98 98 Oxygen Delivery Method Room Air Oxygen Flow Rate 0 Narrative Exam Narrative: Pleasant female awake alert and appropriate Lungs: clear to auscultation CV: RRR nl Sl S2 Abd; soft/ nontender/ non distended Ext: no edema Objective Labs Result Diagrams: 01/18/19 04:45 01/18/19 04:45 Labs: Laboratory Results - last 24 hr 01/17/19 01/17/19 01/17/19 17:15 17:15 17:15 WBC 14.1 H RBC 4.69 Hgb 14.2 Hct 42.5 MCV 90.8 MCH 30.4 MCHC 33.5 RDW 13.8 Plt Count 450 H Neut % (Auto) 72.6 Lymph % (Auto) 20.3 L [place] % (Auto) 6.3 Eos % (Auto) 0.1 L Baso % (Auto) 0.7 Neut # (Auto) 29247 H Lymph # (Auto) 2900 [place] # (Auto) 900 Eos # (Auto) 0 Baso # (Auto) 100 Sodium 138 Potassium 3.6 Chloride 96 L Carbon Dioxide 17 L BUN 12 Creatinine 1.10 H Estimated GFR > 60.0 BUN/Creatinine Ratio 10.9 Glucose 111 H Calcium 9.9 Magnesium 2.1 Total Bilirubin AST ALT Alkaline Phosphatase Total Protein Albumin Globulin Albumin/Globulin Ratio Prolactin 95.8 H Urine Color Urine Appearance Urine pH Ur Specific [place] Urine Protein Urine Glucose (UA) Urine Ketones Urine Occult Blood Urine Nitrate Urine Bilirubin Urine Urobilinogen Ur Leukocyte Esterase Urine RBC Urine WBC Ur Squamous Epith Cells Urine Bacteria Ur Culture Indicated? Urine Test Nasal Screen MRSA (PCR) Urine Opiates Screen Ur Oxycodone Screen Urine Methadone Screen Ur Barbiturates Screen U Tricyclic Antidepress Ur Phencyclidine Scrn Ur Amphetamines Screen U Methamphetamines Scrn Ur MDMA Scrn (Ecstasy) U Benzodiazepines Scrn Urine Cocaine Screen U Marijuana (THC) Screen Ethyl Alcohol < 10 01/17/19 01/17/19 01/17/19 20:00 20:00 20:00 WBC RBC Hgb Hct MCV MCH MCHC RDW Plt Count Neut % (Auto) Lymph % (Auto) [place] % (Auto) Eos % (Auto) Baso % (Auto) Neut # (Auto) Lymph # (Auto) [place] # (Auto) Eos # (Auto) Baso # (Auto) Sodium Potassium Chloride Carbon Dioxide BUN Creatinine Estimated GFR BUN/Creatinine Ratio Glucose Calcium Magnesium Total Bilirubin AST ALT Alkaline Phosphatase Total Protein Albumin Globulin Albumin/Globulin Ratio Prolactin Urine Color Yellow Urine Appearance Clear Urine pH 6.0 Ur Specific [place] 1.020 Urine Protein Negative Urine Glucose (UA) Negative Urine Ketones Negative Urine Occult Blood Trace-lysed Urine Nitrate Negative Urine Bilirubin Negative Urine Urobilinogen 0.2 Ur Leukocyte Esterase Negative Urine RBC 0-1/hpf Urine WBC None seen Ur Squamous Epith Cells None seen Urine Bacteria Few (2-10) H Ur Culture Indicated? Cult not indicated Urine Test Negative Nasal Screen MRSA (PCR) Urine Opiates Screen Negative Ur Oxycodone Screen Negative Urine Methadone Screen Negative Ur Barbiturates Screen Negative U Tricyclic Antidepress Negative Ur Phencyclidine Scrn Negative Ur Amphetamines Screen Negative U Methamphetamines Scrn Negative Ur MDMA Scrn (Ecstasy) Negative U Benzodiazepines Scrn Negative Urine Cocaine Screen Negative U Marijuana (THC) Screen Negative Ethyl Alcohol 01/17/19 01/18/19 01/18/19 21:10 04:45 04:45 WBC 5.8 D RBC 4.05 Hgb 12.5 Hct 36.8 MCV 90.8 MCH 30.9 MCHC 34.0 RDW 13.8 Plt Count 303 Neut % (Auto) 54.5 Lymph % (Auto) 32.6 [place] % (Auto) 8.9 Eos % (Auto) 2.8 Baso % (Auto) 1.2 Neut # (Auto) 3200 Lymph # (Auto) 1900 [place] # (Auto) 500 Eos # (Auto) 200 Baso # (Auto) 100 Sodium 136 L Potassium 3.9 Chloride 104 Carbon Dioxide 27 BUN 7 Creatinine 0.80 Estimated GFR > 60.0 BUN/Creatinine Ratio 8.8 Glucose 92 Calcium 8.4 Magnesium Total Bilirubin 0.8 AST 46 H ALT 11 Alkaline Phosphatase 61 Total Protein 6.4 Albumin 3.5 Globulin 2.9 Albumin/Globulin Ratio 1.2 Prolactin Urine Color Urine Appearance Urine pH Ur Specific [place] Urine Protein Urine Glucose (UA) Urine Ketones Urine Occult Blood Urine Nitrate Urine Bilirubin Urine Urobilinogen Ur Leukocyte Esterase Urine RBC Urine WBC Ur Squamous Epith Cells Urine Bacteria Ur Culture Indicated? Urine Test Nasal Screen MRSA (PCR) Negative for mrsa Urine Opiates Screen Ur Oxycodone Screen Urine Methadone Screen Ur Barbiturates Screen U Tricyclic Antidepress Ur Phencyclidine Scrn Ur Amphetamines Screen U Methamphetamines Scrn Ur MDMA Scrn (Ecstasy) U Benzodiazepines Scrn Urine Cocaine Screen U Marijuana (THC) Screen Ethyl Alcohol Discharge Plan Discharge Plan Discharge Problem: Alcohol withdrawal seizure Patient Disposition: Home Discharge comment: Needs to follow up with new PCP at [facility] Discharge Med Rec/Prescriptions Prescriptions: Continued sertraline 100 mg Tablet 150 mg PO DAILY RF: 0 melatonin 3 mg tablet 3 mg PO BEDTIME PRN (Reason: Sleep) RF: 0 norethindrone-e.estradiol-iron [June FE 07/10 (28)] 1 mg-20 mcg (21)/75 mg (7) tablet 1 tab PO DAILY RF: 0 Provider Discharge Instructions Diet: Diet as Tolerated Discharge Data Attending Provider: Zully Rollins Admit Date/Time: 01/17/19 18:42 Quality VTE Deep Vein Thrombosis/Pulmonary Embolism Present on Admission: No
--- NOTE | 2019-01-18 12:53 | PC.NURSE ---
Am Shift Pt is A/o x4, denies nausea, no tremors noted. Slightly diaphoretic, but Pt reports no tactile disturbances, IV SL for adequate PO intake, D/c plan discussed with Dr Rollins. Pt will not be using any outpatient service,or planning structured abstinence from alcohol. 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 education provided about POC and outpatient services available. Pt will take information. Ольга into see Pt for DC planning. Pt with ride Private vehicle, back home. Pt walked out with staff SBA and plans follow up with PCP on [facility] [place].
--- NOTE | 2019-01-18 14:26 | CM.DANOTE ---
DCP/Assessment: Reviewed chart. Patient is a 23yr old female admitted to [facility] with presumed alcoholic withdrawal seizure. PCP is at [facility]. Primary payor is 1)Annika Dunbar. Received verbal referral from Dr. Rollins requesting INPATIENT CARE MANAGER RN evaluation for substance abuse and mental health. Patient medically stable for discharge today. Met with patient explained INPATIENT CARE MANAGER RN role. Patient alert and oriented at time of visit. Patient freely admits be an alcoholic patient has alcoholic anonymous book on her bed stand. History: Patient reports that she has been drinking alcohol since she was a teen. Patient denies having a problem and reports only drinking on occasion. Patient reports when she turned 19 she was not actively drinking everyday nor did she feel like she had a problem. Current: Patient reports that she works for the [employer] and over the last few years has been drinking alcohol, specifically wine on daily basis. Patient was in alcohol rehab in [place] for approximately 30dys in July/August of this year. Patient reports that she stayed sober for about 2 weeks after getting out of treatment. Since that time she has been drinking on regular basis. Patient believes that after treatment she thought she would be able to manage drinking on occasion. However, patient reports that the stress related to her employment caused her to return to drinking daily. Patient also reports that she is actively being treated for depression and anxiety by MD at [facility]. Patient currently on zoloft 150mg per day x2yrs. Patient denies any current suicidal/homicidal ideation. Although, patient does report she has had SI in the past month. Patient contemplated driving [place] [address]. No previous suicide attempts identified. INPATIENT CARE MANAGER RN discussed the importance of patient refraining from alcohol and attending Alcoholic Anonymous meetings upon d/c. Patient reports that she plans to go to A.A. meeting this evening. Patient aware of the importance of abstaining from alcohol to avoid seizures and additional medical complications. Also discussed strategies for mental health. Patient encouraged to discuss with her PCP at [facility]. Patient may benefit from medication adjustment or outpatient psychiatry consult for depression/anxiety. INPATIENT CARE MANAGER RN provided patient with community resources for both mental health crisis and alcohol treatment/detox. P: Home today. Community resources provided. EMMETT Olivia Discharge Planning/Care Management CM Discharge Assessment Start: 01/18/19 14:24 Freq: Status: Discharge Protocol: Document 01/18/19 14:24 HONEY (Rec: 01/18/19 14:26 HONEY [id number]) Discharge Planning Assessment Assigned Group Home Supervisor EMMETT Olivia Contact Information Evi Rivera (Mother) [phone] Advance Directives? No History Provided By Patient Medical Record Prior Living Arrangements Apartment/Condo Household Members none Type of transporation used prior to Drives own vehicle admit Independent with ADL's Yes Is patient alert and oriented? Yes Caregiver for Another No Barriers to Discharge No Referrals Initiated Other Additional Comment Mental health and substance abuse resources provided. Whiteboard Updated in Patient Room with Yes name and ext. # of Group Home Supervisor Review Status In Process Next Review Type Continued Stay Review
== END 2019-01-18 13:00 | disposition home or self-care (01) ==
LOC: ED 18:39 → AC 18:52 → ICU 01-18 00:19 → AC 01-21 09:34
PROVIDERS: Nurse Practitioner Family; Admitting Provider Internal Medicine; Emergency Provider Emergency Medicine; Visit Provider Internal Medicine
DX: F10.239 Alcohol dependence with withdrawal, unspecified (principal); G40.89 Other seizures; F32.9 Major depressive disorder, single episode, unspecified; F17.210 Nicotine dependence, cigarettes, uncomplicated
CPT/HCPCS: 36415; 80048; 80053; 80305; 80320; 81001; 81025; 83735; 84146; 85025; 87797; 96365; 96375; 99284; 99285; G0378; J2060; J3475; J7050